=== PATIENT | female | born 1950 | race Two or more races ===

== ENCOUNTER 2020-04-12 12:24 | Emergency (ER) | payer OTHER ==
[~2020-04-12] VITALS: Ht 157.5 cm; Wt 79.5 kg
[2020-04-12] MEDS ORDERED: ATOR20TA86 PO (12:48)
[2020-04-12] MEDS ORDERED: SITA50 PO (12:49)
[2020-04-12] MEDS ORDERED: QUET25TA PO (12:49)
[2020-04-12 12:50] VITALS: BP 142/86
[2020-04-12] MEDS ORDERED: ATOR40TA28 PO (12:52)
[2020-04-12] MEDS ORDERED: LISI-618 PO (12:52)
[2020-04-12] MEDS ORDERED: HYDR-4031 PO (12:52)
[2020-04-12] MEDS ORDERED: SITA100 PO (12:52)
== END 2020-04-12 13:33 | disposition home or self-care (01) ==
LOC: EMS 12:28
DX: E11.9 Type 2 diabetes mellitus without complications (principal); I10 Essential (primary) hypertension; Z20.828 Contact with and (suspected) exposure to other viral communicable diseases; Z79.84 Long term (current) use of oral hypoglycemic drugs
CPT/HCPCS: 99283; U0003